=== PATIENT | male | born 1970 | race Caucasian/White ===

== ENCOUNTER → 2022-11-28 15:51 | Outpatient (BNVA) | payer BC, SELFPAY | PROVIDERS: Family Provider Family Medicine; Visit Provider Nurse Practitioner Family | DX: M25.531 Pain in right wrist (principal) | CPT/HCPCS: 73110 ==

== ENCOUNTER 2023-08-27 11:23 | Outpatient (CLI) | payer BC, SELFPAY ==
--- NOTE | 2023-08-27 11:32 | XR_ITS ---
WS: [id number] XR cervical spine 4-5V [id number] REASON FOR EXAM: DDD FINDINGS: No comparison examination. Mild straightening of the normal lordosis of the cervical spine. Anterior plate and screw fixation with interbody fusion C5-C7. The surgical appliances are intact and in proper position and alignment. No significant neutral listhesis. No significant vertebral body movement with flexion or extension. Moderate narrowing of the C3-C4 and C4-C5 disc spaces with moderate anterior and uncinate osteophytos is. IMPRESSION: Anterior cervical fusion as above without abnormality. Moderate degenerative spondylosis in the cervical spine as above.
== END 2023-08-27 11:24 | disposition home or self-care (01) ==
LOC: RAD 11:26
PROVIDERS: Family Provider Family Medicine; PCP Obstetrics & Gynecology; Visit Provider Obstetrics & Gynecology
DX: M50.30 Other cervical disc degeneration, unspecified cervical region (principal); G54.2 Cervical root disorders, not elsewhere classified; Z98.1 Arthrodesis status; M47.812 Spondylosis without myelopathy or radiculopathy, cervical region
CPT/HCPCS: 72050

== ENCOUNTER 2023-09-18 07:01 | Outpatient (CLI) | payer BC, SELFPAY ==
--- NOTE | 2023-09-18 07:15 | MR_ITS ---
WS: [id number] MRI CERVICAL SPINE NONCONTRAST TECHNIQUE: Sagittal T1, T2 and STIR imaging. Axial T2, gradient, and fiesta imaging. CLINICAL INFORMATION: neck pain COMPARISON: None. FINDINGS: Straightening of the normal cervical lordosis. Prior postoperative changes ACDF C5-C7. Cord signal is normal. C2-C3: Normal. C3-C4: Disc osteophyte complex with endplate ridging. Mild bilateral foraminal narrowing LEFT greater than RIGHT. Mild facet arthropathy. C4-C5: Disc osteophyte complex with endplate ridging. Mild to moderate LEFT and mild RIGHT bony maciel inal narrowing. Moderate facet arthropathy. C5-C6: Postoperative changes ACDF. Spinal canal and foramen are patent. Osteoarthropathy. C6-C7: Postoperative changes ACDF. Mild LEFT and no significant RIGHT foraminal narrowing. Spinal can al is patent. Mild facet arthropathy. C7-T1: Mild to moderate LEFT and no significant RIGHT foraminal narrowing. Spinal canal is patent. Visualized brain stem structures: Normal. Prevertebral soft tissues: Normal. IMPRESSION: 1. Straightening of the normal cervical lordosis. Prior postoperative changes ACDF C5-C7. Cord sign al is normal. 2. No high-grade central canal stenosis. 3. Mild to moderate bony foraminal narrowing worse at LEFT C3-C4, LEFT C4-C5, LEFT C6-7 and LEFT C7 -T1.
== END 2023-09-18 07:02 | disposition home or self-care (01) ==
LOC: RAD 07:02
PROVIDERS: Family Provider Family Medicine; PCP Obstetrics & Gynecology; Visit Provider Orthopaedic Surgery
DX: M48.03 Spinal stenosis, cervicothoracic region (principal); Z98.1 Arthrodesis status
CPT/HCPCS: 72141

== ENCOUNTER → 2023-09-24 08:50 | Outpatient (BNVA) | payer BC, SELFPAY | PROVIDERS: Family Provider Family Medicine; PCP Obstetrics & Gynecology; Visit Provider Orthopaedic Surgery | DX: M47.22 Other spondylosis with radiculopathy, cervical region (principal); E11.9 Type 2 diabetes mellitus without complications | CPT/HCPCS: 36415; 80053; 81003; 83036; 85025 ==

== ENCOUNTER 2023-10-18 09:42 | Outpatient (CLI) | payer BC, SELFPAY ==
[2023-10-18 10:27] LABS: Estmated Average Glucose 154
== END 2023-10-18 09:43 | disposition home or self-care (01) ==
LOC: LAB 09:44
PROVIDERS: Family Provider Family Medicine; PCP Obstetrics & Gynecology; Visit Provider Orthopaedic Surgery
DX: Z01.818 Encounter for other preprocedural examination (principal); E11.9 Type 2 diabetes mellitus without complications
CPT/HCPCS: 80048; 81003; 83036; 85025; 87086

== ENCOUNTER 2023-10-28 05:46 | Day surgery (SDC) | payer BC, SELFPAY ==
[2023-10-28] VITALS (21 sets, daily range): BP systolic 135–171; BP diastolic 88–102; PULSE 72–95; RESP 10–27; TEMP 36.1; O2SAT 90–100; BMI 32.3
[2023-10-28 06:25] LABS: Glucose Point of Care 192 mg/dL (70-110)
[2023-10-28 06:25] LABS: Glucose Point of Care 182 mg/dL (70-110)
[2023-10-28] MEDS: scopolamine 1.5 Patch 1 PATCH TRANSDERMA (06:27)
[2023-10-28] MEDS: sodium chloride 0.9% 1,000 ML 30 ML IV (06:27)
--- NOTE | 2023-10-28 06:35 | W.PM.OPSUD ---
Surgery/Procedure H&P Update DATE OF PROCEDURE: October 28, 2023 DATE H&P PERFORMED: 10/18/23 H&P UPDATE INFORMATION: I have reviewed H&P completed within last 30 days, I have examined patient prior to procedure and No changes to prior documentation PREOP DIAGNOSIS: Cervical spondylosis with radiculopathy PLANNED PROCEDURE: Operation Date: 10/28/23 07:00 Proposed Procedures p Anterior Cervical Discectomy & Fusion ACDF w/ Anterior Interbody Fusion w/ Cage w/ Instrumentation w/ Allograft w/ Navigation(Not Applicable) - Christiano Hammond DO
--- NOTE | 2023-10-28 06:45 | ANES.PREANE2 ---
Pre-Anesthetic Assessment Height/Weight: Height 1.96 m Weight 123.831 kg Temp Pulse Resp BP Pulse Ox O2 Del Method 97 F L 88 16 151/102 96 Room Air 10/28/23 06:11 10/28/23 06:11 10/28/23 06:11 10/28/23 06:11 10/28/23 06:11 10/28/23 06:11 Preop Diagnosis: Cervical spondylosis with radiculopathy Operation Date: 10/28/23 07:00 Proposed Procedures p Anterior Cervical Discectomy & Fusion ACDF w/ Anterior Interbody Fusion w/ Cage w/ Instrumentation w/ Allograft w/ Navigation(Not Applicable) - Christiano Hammond, DO Familial anesthetic complications: None Was Beta Lydia taken within 24 hours: N/A Was Clonidine taken within 24 hours: N/A Last intake: Intake Last Liquid Date 10/28/23 Last Liquid Time 05:00 Last Solid Date 10/27/23 Last Solid Time 23:55 Social No alcohol and No tobacco Exam alert, oriented x 3, clear to auscultation bilaterally and regular rate & rhythm Airway Mallampati: Class IV Dentition: other (missing teeth) Comments: Comments: Large neck and fournier Pulmonary Sleep Apnea CV/HEM Hypertension Metabolic Diabetes Mellitus Anesthetic Plan ASA status: 3 Anesthesia: General Risk of > 500 ml blood loss (7ml/kg in children): No Medications/Allergies Home Medications Medication Instructions Recorded Confirmed Last Taken Type bupropion HCl 300 mg 24 hr tablet, 300 mg PO QAM 11/28/22 10/25/23 10/18/23 History extended release (Wellbutrin XL) lisinopril 10 mg tablet 10 mg PO DAILY 11/28/22 10/28/23 10/27/23 History metformin 1,000 mg tablet 1,000 mg PO DAILY 11/28/22 10/28/23 10/26/23 History Allergies Allergy/AdvReac Type Severity Reaction Status Date / Time meperidine [From Demerol] Allergy ADR-Nausea Verified 10/18/23 11:54 Current Medications Generic Name Dose Route Start Last Admin Trade Name Freq PRN Reason Stop Dose Admin Sodium Chloride 1,000 mls @ 30 mls/hr 10/28/23 06:00 10/28/23 06:27 Sodium Chloride 0.9% IV 10/29/23 05:59 30 mls/hr .Q24H UMESH Administration Data Anesthesia Cardiac Studies: No Data to Display
[2023-10-28] MEDS: ceFAZolin 2,000 MG in sodium chloride 0.9% (plus) 50 ML 100 MG IV (07:02)
[2023-10-28] MEDS: lidocaine-epi 1% 20 mL INJ INJECTION (08:10)
[2023-10-28] MEDS: thrombin 5,000 unit SDV 5000 UNIT XX (08:10)
[2023-10-28] MEDS: fentaNYL 50 mcg/mL INJ 2mL IVP ×2 (09:26→09:37)
--- NOTE | 2023-10-28 09:35 | P.OP_ITS ---
Operative Report Date of procedure: October 28, 2023 Pre-op diagnosis: Cervical spondylosis with radiculopathy Post-op diagnosis: same Procedure done: 1. Anterior diskectomy C3/4 2. Anterior discectomy C4/5 3. Insertion of cage C3/4 4. Insertion of Cage C4/5 5. Instrumentation with anterior plate from C3-C5 6. Use of allograft Surgeon: Christiano Hammond DO Estimated blood loss (mL): 25 Procedure: 1. Anterior diskectomy C3/4 2. Anterior discectomy C4/5 3. Insertion of cage C3/4 4. Insertion of Cage C4/5 5. Instrumentation with anterior plate from C3-C5 6. Use of allograft The patient was taken to the operating room, where he underwent general endotracheal anesthesia without complications. He was then positioned supine on the operating table, and all areas of impingement were well padded. The arms were carefully padded and tucked at his sides. A roll was placed between the shoulder blades.. An x-ray was done to determine the appropriate level for the skin incision. The entire neck was then sterilely prepped and draped in the usual fashion. Neuromonitoring was attached prior to prepping. A transverse skin incision was made and carried down to the platysma muscle. This was then split in line with its fibers. Blunt dissection was carried down medial to the carotid sheath and lateral to the trachea and esophagus until the anterior cervical spine was visualized. A needle was placed into a disc and an x-ray was done to determine its location. The longus colli muscles were then elevated bilaterally with the electrocautery unit. Self-retaining retractors were placed deep to the longus colli muscle. Attention was brought to the C3/4 level that was confirmed on x-ray. A caspar pin was placed into the C3 vertebrae and the C4 vertebrae. The disk space was then distracted. The microscope was then brought in. A radical anterior discectomies were performed at C3/4. This included complete removal of the anterior annulus, nucleus, and posterior annulus. The posterior longitudinal ligament was removed as were the posterior osteophytes. Foraminotomies were then accomplished bilaterally. This was done using a high speed bernadette, kerrison rongeurs and curretes Once all of this was accomplished, the curved currette was used to check for any residual compression. The central canal was wide open as were the foramen. A high-speed bur was used to remove the cartilaginous endplates above and below the interspace. Bleeding cancellous bone was exposed. The disc space were measured and appropriate size cage were placed sterilely onto the field. Allograft graft was packed into the cages. The cage was then placed and there was good juxtaposition against the bleeding decorticated surfaces and good distraction of each interspace. Attention was brought to the next interspace. The [place] pins were removed. Bone wax was used to prevent any bleeding from occurring at the pin sites. Attention was brought to the C4/5 level that was confirmed on x-ray. A caspar pin was placed into the C4 vertebrae and the C5 vertebrae. The disk space was then distracted. The microscope was then brought in. A radical anterior discectomies were performed at C4/5. This included complete removal of the anterior annulus, nucleus, and posterior annulus. The posterior longitudinal ligament was removed as were the posterior osteophytes. Foraminotomies were then accomplished bilaterally. This was done using a high speed bernadette, kerrison rongeurs and curretes Once all of this was accomplished, the curved currette was used to check for any residual compression. The central canal was wide open as were the foramen. A high-speed bur was used to remove the cartilaginous endplates above and below the interspace. Bleeding cancellous bone was exposed. The disc space were measured and appropriate size cage were placed sterilely onto the field. Allograft graft was packed into the cages. The cage was then placed and there was good juxtaposition against the bleeding decorticated surfaces and good distraction of each interspace. Attention was brought to the next interspace. The [place] pins were removed. Bone wax was used to prevent any bleeding from occurring at the pin sites. The appropriate size anterior cervical locking plate was chosen and bent into gentle lordosis. Two screws were then placed into each of the vertebral bodies at []. There was excellent purchase. A final x-ray was done confirming good position of the hardware and Cages. The locking screws were then applied, also with excellent purchase. Following a final copious irrigation, there was good hemostasis and no dural leaks. The carotid pulse was strong. The wounds were then closed in layers using 2-0 Vicryl suture for the platysma muscle, 2-0 Vicryl suture for the subcutaneous tissue, and 4-0 monocryl suture in a subcuticular skin closure. Glue was placed followed by application of a sterile dressing. The drain was hooked to bulb suction. A soft collar was applied. The patient was then carefully returned to the supine position on his hospital bed where he was reversed and extubated and taken to the recovery room having tolerated the procedure well.
[2023-10-28] MEDS: HYDROmorphone 1 mg/mL INJ 1 mL 0.5 MG IVP ×2 (09:58→10:12)
[2023-10-28] MEDS: HYDROcodone-acetaminophen 5-325 mg Tablet 2 TAB PO (11:21)
--- NOTE | 2023-10-28 11:50 | ANE.PACU2 ---
Inpatient post-anesthesia follow up: Airway intact: Yes Vital signs: Temperature 97.0 F Pulse Rate 95 Respiratory Rate 16 Blood Pressure 157/96 Pulse Oximetry 98 Oxygen Delivery Me thod Room Air Oxygen Flow Rate 8 Fraction of Inspir ed Oxygen Hydration adequate: Yes Nausea and vomiting: No Pain level: 1 Mental status: Baseline
--- NOTE | 2023-10-28 15:08 | XR_ITS ---
WS: [id number] Exam: XR cervical spine 3V* [id number] Date/Time of Exam: 10/28/2023 3:08 PM Reason For Exam: CAR[facility] PICS Intraoperative AP and lateral C-arm images of the C-spine are submitted. The images depict anterior fusion of the cervical spine with plate and screw fixation. An ET tube is noted in the airway.
== END 2023-10-28 11:50 | disposition home or self-care (01) ==
PROVIDERS: Family Provider Family Medicine; PCP Obstetrics & Gynecology; Visit Provider Orthopaedic Surgery
PROC: 0RB30ZZ Excision of Cervical Vertebral Disc, Open Approach (ICD-10-PCS; CPT 22551; principal; 2023-10-28 07:00)
DX: M47.22 Other spondylosis with radiculopathy, cervical region (principal); G47.30 Sleep apnea, unspecified; I10 Essential (primary) hypertension; E11.9 Type 2 diabetes mellitus without complications; Z79.84 Long term (current) use of oral hypoglycemic drugs
CPT/HCPCS: 20930; 22551; 22552; 22845; 22853 ×2; 36416; 72040; 76000; 82962; C1713; C1763; C9359; J0330; J0690; J1100; J1170; J2250; J2371; J2405; J2704; J2710; J3010; J3490; J7030

== ENCOUNTER → 2023-10-31 13:48 | Outpatient (BNVA) | payer BC, SELFPAY | PROVIDERS: Family Provider Family Medicine; PCP Obstetrics & Gynecology; Visit Provider Orthopaedic Surgery | DX: Z98.1 Arthrodesis status (principal) | CPT/HCPCS: 72040 ==

== ENCOUNTER → 2023-11-28 13:16 | Outpatient (BNVA) | payer BC, SELFPAY | PROVIDERS: Family Provider Family Medicine; PCP Obstetrics & Gynecology; Visit Provider Orthopaedic Surgery | DX: Z98.1 Arthrodesis status (principal) | CPT/HCPCS: 72040 ==

== ENCOUNTER → 2023-12-12 13:05 | Outpatient (BNVA) | payer BC, SELFPAY | PROVIDERS: Family Provider Family Medicine; PCP Obstetrics & Gynecology; Visit Provider Orthopaedic Surgery | DX: Z98.1 Arthrodesis status (principal) | CPT/HCPCS: 72040 ==

== ENCOUNTER 2024-01-06 09:56 | Outpatient (CLI) | payer BC, SELFPAY ==
--- NOTE | 2024-01-06 10:00 | FL_ITS ---
WS: [id number] FL barium swallow modifd [id number] REASON FOR EXAM: Food sticking in upper esophagus. FLUOROSCOPY TIME: 2min [id number] # OF SPOT FILMS: 0 FINDINGS: The examination was supervised by the speech therapy department. With the patient in the sitting upright lateral projection the swallowing of varying consistencies of barium was performed under fluoroscopic guidance and video recorded. A detailed report of the swallowing will be rendered by the speech therapy department. FL/FL barium swallow modifd [id number] IMPRESSION: Modified barium swallow as above.
== END 2024-01-06 09:57 | disposition home or self-care (01) ==
LOC: RAD 09:57
PROVIDERS: Family Provider Family Medicine; PCP Obstetrics & Gynecology; Visit Provider Otolaryngology
DX: R13.10 Dysphagia, unspecified (principal)
CPT/HCPCS: 74230; 92611

== ENCOUNTER → 2024-01-23 13:40 | Outpatient (BNVA) | payer BC, SELFPAY | PROVIDERS: PCP Nurse Practitioner Family; Visit Provider Orthopaedic Surgery | DX: M54.2 Cervicalgia (principal) | CPT/HCPCS: 72040 ==

== ENCOUNTER → 2024-03-31 08:34 | Outpatient (BNVA) | payer BC, SELFPAY | PROVIDERS: PCP Nurse Practitioner Family; Visit Provider Orthopaedic Surgery | DX: M54.50 Low back pain, unspecified (principal) | CPT/HCPCS: 72110 ==

== ENCOUNTER → 2024-04-21 08:18 | Outpatient (BNVA) | payer BC, SELFPAY | PROVIDERS: PCP Nurse Practitioner Family; Visit Provider Orthopaedic Surgery | DX: Z98.1 Arthrodesis status (principal) | CPT/HCPCS: 72040 ==

== ENCOUNTER 2024-05-19 13:52 | Outpatient (CLI) | payer BC, SELFPAY ==
--- NOTE | 2024-05-19 13:45 | MR_ITS ---
WS: [id number] MRI LUMBAR SPINE NONCONTRAST TECHNIQUE: Sagittal T1, T2 and STIR imaging. Axial T1 and T2 imaging. CLINICAL INFORMATION: back pain COMPARISON: None. FINDINGS: Mild lumbar curve. No acute compression. Prior postoperative changes posterior fixation L5-S1 with in terconnecting rods. Slight retrolisthesis L5 on S1. L1-L2: Mild annular bulging. Shallow RIGHT paracentral protrusion. Mild facet arthropathy. Spinal can al and foramen are patent. L2-L3: Mild annular bulging. Slight effacement of the ventral thecal sac. Mild facet arthropathy. Spi nal canal and foramen are patent. L3-L4: Mild annular bulging with slight effacement of the ventral thecal sac. Mild facet arthropathy. Mild LEFT and no significant RIGHT foraminal narrowing. Moderate facet arthropathy. L4-L5: Images degraded at this level due to hardware artifact. Suggestion of moderate central canal s tenosis although difficult to evaluate. Mild bilateral foraminal narrowing. L5-S1: Images degraded due to susceptibly artifact from hardware. Slight retrolisthesis. Disc bulging with slight impingement on traversing S1 nerve roots LEFT greater than RIGHT. Mild LEFT and no signi ficant RIGHT foraminal narrowing. Visualized pelvic bony structures: Normal. Paravertebral soft tissues: Normal. Partially visualized small RIGHT renal cyst. MR/MR lumbar spine wo con* [id number] IMPRESSION: 1. Pedicle screw fixation L5-S1 with slight retrolisthesis L5 on S1. Hardware degrades images. 2. Suggestion of moderate central canal stenosis L4-5 although not well evalua kory due to susceptibility artifact. Consider further evaluation with CT or myel ogram 3. Mild bilateral L4-5 foraminal narrowing. 4. Mild LEFT L5-S1 foraminal narrowing. 5. Mild LEFT L3-4 foraminal narrowing. 6. Disc bulge L5-S1 with slight retrolisthesis and slight impingement traversi ng LEFT greater than RIGHT S1 nerve roots.
== END 2024-05-19 13:53 | disposition home or self-care (01) ==
LOC: RAD 13:52
PROVIDERS: PCP Nurse Practitioner Family; Visit Provider Orthopaedic Surgery
DX: M99.63 Osseous and subluxation stenosis of intervertebral foramina of lumbar region (principal); M51.369 Other intervertebral disc degeneration, lumbar region without mention of lumbar back pain or lower extremity pain; M43.26 Fusion of spine, lumbar region
CPT/HCPCS: 72148

== ENCOUNTER → 2024-07-14 14:09 | Outpatient (BNVA) | payer BC, SELFPAY | PROVIDERS: PCP Nurse Practitioner Family; Visit Provider Orthopaedic Surgery | DX: Z98.1 Arthrodesis status (principal); M54.50 Low back pain, unspecified; Z09 Encounter for follow-up examination after completed treatment for conditions other than malignant neoplasm; M48.062 Spinal stenosis, lumbar region with neurogenic claudication | CPT/HCPCS: 36415; 80053; 81001; 85025 ==

== ENCOUNTER 2024-07-27 10:53 | Day surgery (SDC) | payer BC, SELFPAY ==
[2024-07-27] VITALS (8 sets, daily range): BP systolic 135–173; BP diastolic 66–87; PULSE 70–87; RESP 18; TEMP 36.2–36.6; O2SAT 95–100; BMI 29.6
--- NOTE | 2024-07-27 11:26 | W.PM.OPSUD ---
Surgery/Procedure H&P Update DATE OF PROCEDURE: July 27, 2024 DATE H&P PERFORMED: 07/14/24 H&P UPDATE INFORMATION: I have reviewed H&P completed within last 30 days, I have examined patient prior to procedure and No changes to prior documentation PREOP DIAGNOSIS: Lumbar stenosis with neurogenic claudication PLANNED PROCEDURE: Operation Date: 07/27/24 12:15 Proposed Procedures p Lumbar Spine Decompression Lumbar Decompression(Not Applicable) - Christiano Hammond DO
--- NOTE | 2024-07-27 11:29 | ANES.PREANE2 ---
Pre-Anesthetic Assessment Height/Weight: Height 6 ft 5 in Weight 250 lb Temp Pulse Resp BP Pulse Ox O2 Del Method 97.8 F 85 18 140/87 97 Room Air 07/27/24 11:21 07/27/24 11:21 07/27/24 11:21 07/27/24 11:21 07/27/24 11:21 07/27/24 11:21 Preop Diagnosis: Lumbar stenosis with neurogenic claudication Operation Date: 07/27/24 12:15 Proposed Procedures p Lumbar Spine Decompression Lumbar Decompression(Not Applicable) - Christiano Hammond DO Familial anesthetic complications: Spinal stenosis Was Beta Lydia taken within 24 hours: N/A Was Clonidine taken within 24 hours: N/A Social No alcohol and No tobacco Exam alert, oriented x 3, clear to auscultation bilaterally and regular rate & rhythm Airway Submandibular: within normal limits Cervical ROM: within normal limits Mallampati: Class II Dentition: full Anesthetic Plan Anesthesia: General Other: Patient states that he is aggressive when he wakes up from anesthesia NPO since yesterday History of hypertension on lisinopril Prior cervical fusion Type 2 diabetes on metformin Labs 07/14/2024 reviewed acceptable for procedure. Chronic hyponatremia. NA 134 Patient states that he is able to get around just fine, METs greater than 4 Plan for general anesthesia Medications/Allergies Home Medications Medication Instructions Recorded Confirmed Last Taken Type bupropion HCl 300 mg 24 hr tablet, 300 mg PO QAM 11/28/22 07/23/24 07/23/24 History extended release (Wellbutrin XL) lisinopril 10 mg tablet 10 mg PO DAILY 11/28/22 07/23/24 07/16/24 History metformin 1,000 mg tablet 1,000 mg PO DAILY 11/28/22 07/23/24 10/26/23 History hydrocodone 5 mg-acetaminophen 325 1 tab PO Q4H PRN pain 7 days #40 07/14/24 07/23/24 07/23/24 Rx mg tablet tabs Allergies Allergy/AdvReac Type Severity Reaction Status Date / Time meperidine [From Demerol] Allergy ADR-Nausea Verified 07/14/24 13:06 PFSH Anesthesia Surgical History S/P cervical spinal fusion Status post cervical spinal fusion S/P cervical spinal fusion History of appendectomy History of colonoscopy Social History Smoking and tobacco/nicotine status: never used tobacco/nicotine Second hand smoke exposure: No Alcohol intake: current Alcohol intake frequency: holidays/special occasions only Substance/Drug Use: never Data Anesthesia Cardiac Studies: No Data to Display
[2024-07-27] MEDS: sodium chloride 0.9% 1,000 ML 30 ML IV (11:50)
[2024-07-27 11:52] LABS: Glucose Point of Care 138 mg/dL (70-110)
[2024-07-27] MEDS: ceFAZolin 2,000 mg SDV 2000 MG IVP (12:00)
[2024-07-27] MEDS: lidocaine-epi 1% 20 mL INJ 10 ML INJECTION (12:41)
--- NOTE | 2024-07-27 13:02 | PM.OP ---
Operative Report Date of procedure: July 27, 2024 Pre-op diagnosis: Lumbar stenosis with neurogenic claudication Post-op diagnosis: same Procedure done: L4-5 laminectomy with partial facetectomy Surgeon: Christiano Hammond DO Estimated blood loss (mL): 10 Procedure: L4-5 laminectomy with partial facetectomy Patient is brought to the operative suite. After undergoing anesthesia they are placed in the prone position. All areas of impingement are well padded. Patient is then prepped and draped in the normal sterile fashion. A skin incision is made over the L4/5 level. This is confirmed under c-arm guidance. A series of dilators are passed and the tubular retractor is docked on the L4 lamina. A bovie is used to clear the soft tissue off the lamina and the L 4/5 facet joint. A high speed bernadette is then used to perform the laminectomy and take down the medial aspect of the L 4/5 facet joint. A kerrison rongeure was then used to take down the remaining lamina and smooth the edge of the laminectomy up to the point where the ligamentum flavum attaches. Attention was then brought to the medial aspect of the facet joint. The remaining medial aspect of the superior and inferior aspect of the facet joint were taken down with the kerrison from the pedicle of L4 to L 5. The facet joint had significant hypertrophy. Attention was then brought to the Ligamentum Flavum. The ligament was taken down from the lamina of L4 to L5 and out medially to the remaining facet joint. The ligament was thick scarred. The dura was then exposed. The dura was in good repair. The L4 nerve was then traced with a curette out the L4/5 foramen and found to be adequately decompressed. The L5 nerve was traced with a curette around the L5 pedicle. The lateral recess was opened with a kerrison helping to further decompress the L5 nerve. Wound is then irrigated copiously with saline and surgiflo is used to stop any bleeding. The tubular retractor is removed and the wound is closed with vicryl and monocryl suture. Glue is then used to protect the wound. A sterile dressing is then placed. Patient was then placed in the supine position and transferred to the PACU in stable condition.
--- NOTE | 2024-07-27 13:13 | XR_ITS ---
WS: [id number] C-ARM RADIOGRAPHS LUMBAR SPINE; 2 IMAGES HISTORY: OR PICS COMPARISON: None available. Intraoperative imaging during lumbar fusion procedure. No lateralization. XR/XR lumbar spine 2-3V* [id number] IMPRESSION: Intraoperative imaging during lumbar fusion procedure.
[2024-07-27] MEDS: HYDROcodone-acetaminophen 5-325 mg Tablet 1 TAB PO (13:45)
--- NOTE | 2024-07-27 14:23 | ANE.PACU2 ---
Inpatient post-anesthesia follow up: Airway intact: Yes Vital signs: Temperature 97.2 F Pulse Rate 70 Respiratory Rate 18 Blood Pressure 135/69 Pulse Oximetry 95 Oxygen Delivery Me thod Room Air Oxygen Flow Rate 6 Fraction of Inspir ed Oxygen Hydration adequate: Yes Nausea and vomiting: No Pain level: 1 Mental status: Baseline
== END 2024-07-27 14:23 | disposition home or self-care (01) ==
PROVIDERS: PCP Nurse Practitioner Family; Visit Provider Orthopaedic Surgery
PROC: (CPT 63005; principal; 2024-07-27 11:55)
DX: M48.062 Spinal stenosis, lumbar region with neurogenic claudication (principal); I10 Essential (primary) hypertension; E11.9 Type 2 diabetes mellitus without complications; Z98.1 Arthrodesis status; Z79.84 Long term (current) use of oral hypoglycemic drugs
CPT/HCPCS: 63047; 36416; 72100; 76000; 82962; J0690; J1100; J2405; J2704; J2710; J3010; J3490; J7030